=== PATIENT | female | born 1960 | race Caucasian/White ===

== ENCOUNTER 2021-04-22 13:34 | Emergency (ER) | payer OTHER, SELFPAY ==
[2021-04-22 13:36] VITALS: BP 120/91; PULSE 80; RESP 18; TEMP 36.7; O2SAT 99; BMI 25.8
--- NOTE | 2021-04-22 13:59 | ED.VIS.BACK ---
HPI History of Present Illness Chief Complaint: Back Informant: patient Narrative Narrative: Patient is a 60-year-old female with history of osteoporosis of Alexander's esophagus presenting with back pain. Patient states is been worsening for the past 3 days. She denies any trauma or injury. It is worse when she tries to move. She states she gets spasms in her lower back that radiates down. The first day she put a cream on it which did seem to help but it did not help the last 2 days. She took a 250 mg ibuprofen around 930 this morning with no significant relief. She states she got it from her friend. Patient denies any bowel or bladder incontinence. She denies any numbness or weakness in her legs. She denies any saddle anesthesia. No fever chills. No injuries. No new physical activities. No she had a similar episode of pain about a month ago but only lasted for 1 day and resolved spontaneously so she did not seek evaluation at that time. No current weakness in her legs but notes that when her pain is really bad her legs do feel weak diffusely. PFSH PFSH Home Medications alendronate [Fosamax] 70 mg PO QWEEK 04/22/21 [History Last Taken Unknown] cyclobenzaprine 10 mg PO TID PRN #20 tab 04/22/21 [Rx Last Taken Unknown] omeprazole 40 mg PO BID 04/22/21 [History Last Taken Unknown] prednisone 40 mg PO DAILY #10 tab 04/22/21 [Rx Last Taken Unknown] Allergy/AdvReac Type Severity Reaction Status Date / Time codeine AdvReac Other Verified 04/22/21 13:38 Social History Smoking Status: Current every day smoker tobacco type: cigarettes ROS ROS ED Constitutional Constitutional ED: Denies chills or fever(s) Eyes Eyes: Denies blurry vision or change in vision Cardiovascular Cardiovascular: Denies chest pain or palpitations Respiratory/Chest Respiratory/Chest: Denies dyspnea Gastrointestinal Gastrointestinal: Denies abdominal pain, diarrhea, nausea or vomiting Genitourinary Genitourinary ED: Denies dysuria, hematuria or urinary frequency Musculoskeletal Musculoskeletal: Reports back pain; Denies arthralgias or myalgias Integumentary Denies rash Neurologic Neurologic: Denies headache(s), paresthesias or weakness Psychiatric Psychiatric: Denies anxiety or depression EXAM Physical Exam Const Vital Signs: 04/22/21 13:36 Temperature 98.1 F Temperature Source Temporal Pulse Rate 80 Respiratory Rate 18 Blood Pressure 120/91 H Blood Pressure Mean 100 Pulse Ox 99 Oxygen Delivery Method Room Air Positive well nourished and well developed General Appearance ED: well developed HEENT Reports moist mucous membranes Negative for tenderness Eyes PERRL and EOMs intact bilaterally Neck supple Neck Narrative: Normal range of motion Resp normal respiratory effort and clear to auscultation bilaterally Cardio regular rate, regular rhythm and no murmurs Cardio Narrative: 2+ bilateral PT pulses GI normal to inspection, nondistended, normoactive bowel sounds, non-distended and no masses Back/Spine normal to inspection Back/Spine Narrative: No CVA tenderness. No pinpoint reproducible area of tenderness however it is diffuse in the mid lumbar spine including the midline and paraspinal muscles. No step-off sign appreciated. Pain is reproduced when she tries to sit herself up. Extremity normal to inspection General Extremety ED: Negative for edema or tenderness General Extremity: Negative for edema Neuro oriented x3 and no sensory deficits noted Neuro Narrative: 5/5 strength with plantar dorsiflexion of the legs Sensorium / Orientation: alert Motor Exam: strength 5/5 throughout MDM MDM MDM Narrative Medical decision making narrative: Patient evaluated for atraumatic low back pain. Denies any trauma. Was in a car [place], 5 days ago so this might of caused the pain. Presentation is more consistent with muscle spasms. Given her age and midline tenderness I did get an x-ray. This is negative for any acute process however she does have multilevel disc space narrowing and spondylosis. Patient given a dose of Norflex and Tylenol in the ER. On repeat evaluation she is feeling improved. Will discharge home to follow-up with her primary care doctor. Is given a prescription for Flexeril as well as a [id number] course of prednisone burst. Counseled on return precautions. Patient verbalized agreement understand with this plan. Patient discharged home in stable and improved condition. I do not suspect cauda equina syndrome or more serious pathology as a cause of her pain at this time. Radiography X-Ray: LS SPine, T-Spine, Read by ED Physician, Read by Radiologist, No Fracture and Disk Space Narrowing Diagnostic Testing: Clinical Impression(s) from Imaging Studies Lumbar Spine X-Ray 04/22/21 14:30 IMPRESSION: Degenerative changes of the spine, as detailed above. Electronically Signed: Anson Robbins MD at 14:51 EST , Thoracic Spine X-Ray 04/22/21 14:30 IMPRESSION: Multilevel disc space narrowing and spondylosis. Electronically Signed: Anson Robbins MD at 14:52 EST , Discharge Plan Triage Chief Complaint: Back ED Provider: Marisa Perry Dx/Rx/DC Orders Clinical Impression: Acute lumbar back pain Instructions: ED Back Spasm, No Trauma Prescriptions: New cyclobenzaprine 10 mg tablet 10 mg PO TID PRN (Reason: muscle spasm) Qty: 20 RF: 0 prednisone 20 mg tablet 40 mg PO DAILY Qty: 10 RF: 0 No Action alendronate [Fosamax] 70 mg Tablet 70 mg PO QWEEK RF: 0 omeprazole 40 mg Capsule,Delayed Release(Dr/Ec) 40 mg PO BID RF: 0 Referrals: Dalton Springer [Other] Activity Restrictions/Additional Instructions: You have been given a prescription for muscle relaxer as well as prednisone. Only take the prednisone if you are not having improvement in the next 2 to 3 days. You do not need to take it if you are feeling better with just some muscle relaxer and Tylenol. Disposition Disposition: Home, Self Care Discharge Date/Time: 04/22/21 15:56
[2021-04-22] MEDS: Acetaminophen 500 MG Tablet 1000 MG PO (14:11)
[2021-04-22] MEDS: Orphenadrine 60 MG/2 ML Ampul IM (14:13)
--- NOTE | 2021-04-22 14:30 | RAD_ITS ---
STUDY: X-RAY - LUMBAR SPINE REASON FOR EXAM: Female, 60 years old. Low back pain. TECHNIQUE: 5 view(s) of the lumbar spine were obtained. COMPARISON: None FINDINGS: Normal lumbar lordosis. There is no substantial scoliosis. There is a normal alignment of the vertebrae. There is multilevel endplate spondylosis of the lumbar vertebrae. Marked degree of disc space narrowing at the L5-S1 level. Moderate degree of disc space narrowing at the L4-L5 There is atherosclerotic calcification of the abdominal aorta without a demonstrated aneurysm. RAD/L/S Spine Min 4 Views IMPRESSION: Degenerative changes of the spine, as detailed above. Electronically Signed: Anson Robbins MD at 14:51 EST ,
--- NOTE | 2021-04-22 14:30 | RAD_ITS ---
STUDY: X-RAY - THORACIC SPINE REASON FOR EXAM: Female, 60 years old. Injury/Pain TECHNIQUE: 3 view(s) of the thoracic spine were obtained. COMPARISON: None. FINDINGS: There is an increase in the normal thoracic kyphosis. There is no substantial scoliosis. There is demineralization of the thoracic spine with endplate spondylosis. There is multilevel disc space narrowing of the thoracic spine. The soft tissue structures are unremarkable. RAD/Thoracic Spine 3 Views IMPRESSION: Multilevel disc space narrowing and spondylosis. Electronically Signed: Anson Robbins MD at 14:52 EST ,
== END 2021-04-22 15:56 | disposition home or self-care (01) ==
PROVIDERS: Emergency Provider Emergency Medicine; Visit Provider Emergency Medicine
DX: M54.50 Low back pain, unspecified (principal); F17.210 Nicotine dependence, cigarettes, uncomplicated
CPT/HCPCS: 72072; 72110; 96372; 99282